=== PATIENT | female | born 1980 | race Hispanic/Latino ===

== ENCOUNTER 2024-03-10 07:42 | Day surgery (SDC) | payer BC ==
[2024-03-07 09:48] LABS: Absolute Eosinophils 0.2 K/uL (0-0.5); Absolute Lymphocytes (CBC) 2.1 K/uL (0.7-4.9); Absolute Monocytes 0.7 K/uL (0.1-1.3); Basophils % 0.3 % (0-1.3); Eosinophils % 2.6 % (0-4.4); Hematocrit 42.9 % (36.0-45.0); Hemoglobin 13.9 g/dL (12.0-15.0); Lymphocytes % 29.8 % (15.3-44.8); MCH 29.3 pg (27.0-35.0); MCHC 32.5 g/dL (32.0-36.0); MCV 90.3 fL (80-100); MPV 8.7 fL (7.6-11.3); Monocytes % 9.5 % (3.3-12.3); Neutrophils % 57.8 % (41.7-73.7); Nucleated Red Blood Cells % 0.1 % (0-0); Platelets 235 thou/uL (152-406); RBC Red Blood Cell Count 4.75 M/uL (3.86-4.86); Red Cell Distribution Width 13.9 % (12.1-15.2)
[2024-03-07 09:52] LABS: Specific Gravity 1.023 (1.005-1.030); Urine Bilirubin NEGATIVE (Negative); Urine Blood Negative (Negative); Urine Clarity Clear (Clear); Urine Color Light-Yellow (Yellow); Urine Glucose NEGATIVE (Negative); Urine Ketones NEGATIVE (Negative); Urine Microscopic Reflex YN NO UMIC; Urine Nitrite NEGATIVE (Negative); Urine Protein NEGATIVE (Negative); Urine Urobilinogen Normal (Normal)
[2024-03-10] MEDS ORDERED: Ringers Lactate 1,000 ML IV ONE (07:58)
[2024-03-10] MEDS: SCOPOLAMINE HYDROBROMIDE PATCH TD ONE (08:15)
[2024-03-10] MEDS: CEFAZOLIN SODIUM 2 GM/VIAL ONE (09:14)
[2024-03-10 10:30] LABS: Urine Specific Gravity/Preg >1.030 (1.005-1.030)
[2024-03-10] MEDS ORDERED: ONDANSETRON 4 MG/2 ML VIAL ONE (10:53)
[2024-03-10] MEDS ORDERED: LIDOCAINE 2% MPF 5 ML VIAL ONE (10:53)
[2024-03-10] MEDS ORDERED: FENTANYL CITR 100 MCG/2 ML ONE ×2 (10:53→14:55)
[2024-03-10] MEDS ORDERED: MIDAZOLAM HCL 2 MG/2 ML INJ ONE (10:53)
[2024-03-10] MEDS ORDERED: propofoL 200 MG/20 ML VIAL IV ONE (10:53)
[2024-03-10] MEDS ORDERED: ROCURONIUM 50 MG/5 ML VIAL IV ONE (10:53)
[2024-03-10] MEDS ORDERED: SUCCINYLCHOLINE 20 MG/ML (10 ML) IV ONE (10:57)
[2024-03-10] MEDS ORDERED: SUGAMMADEX SODIUM 200 MG/2 ML VIAL IV ONE (11:02)
[2024-03-10] MEDS ORDERED: HYDROMORPHONE HCL 2 MG/ML inj ONE (11:02)
[2024-03-10] MEDS ORDERED: Mastisol Adhesive Liq ONE (11:19)
[2024-03-10] MEDS ORDERED: dexAMETHasone 10 MG/ML VIAL ONE (11:50)
[2024-03-10] MEDS: BUPIVACAINE 0.25% PF 30 ML VIAL ONE (12:22)
[2024-03-10] MEDS: Ringers Lactate 1,000 ML IV ONE (13:19)
[2024-03-10] MEDS ORDERED: PROMETHAZINE INJ 25 MG/ML AMP ONE (14:56)
[2024-03-10 16:24] VITALS: BP 114/71; TEMP 97
[2024-03-10] MEDS: HYDROCODONE/APAP 5/325 MG TAB ONE (16:30)
[2024-03-10 17:15] VITALS: O2SAT 98
--- NOTE | 2024-03-14 13:24 | OP ---
Date of Procedure: 03/10/2024 Surgeon: Carlyn Cordero MD [employer]: Che Jessica Preoperative Diagnoses: Pelvic pain, history of menorrhagia, status post endometrial ablation with r ecurrent abnormal uterine bleeding (AUB-O/A). Postoperative Diagnoses: Pelvic pain, history of menorrhagia, status post endometrial ablation with recurrent abnormal uterine bleeding (AUB-O/A), bilateral hydrosalpinx and hematosalpinx, uterine prol apse and posterior enterocele, endometriosis of left mesosalpinx and possibly tubes. Procedures Performed: 1.Total laparoscopic hysterectomy, bilateral salpingectomy. Endometriosis excision from the left me sosalpinx. The specimen included along with the tube, which was attached to the uterine specimen. 2.Uterosacral ligament suspension colpopexy and cystoscopy. 3.Laparoscopic modified Reyna culdoplasty. Anesthesia: General endotracheal. Estimated Blood Loss: 50 Specimens: Bilateral tubes with left mesosalpinx, endometriosis including and uterus. Complications: No complications. Drains: No drains. Patient's Condition: Stable. Findings: POP-Q -2, -2, -3, 5.5, moderate, 8, -2, -1, and -4, uterine prolapse was significant and f ollowed by the proximal posterior wall defect, which is a posterior enterocele. She also had a large genital hiatus with a perineal body defect as well as perineal descent from the posterior enterocele defect. Cystoscopy was performed after the suspension was completed, and both ureteric orifices had strong je ts of urine from them. No evidence of any trauma to the bladder. Both tubes were significantly swollen. The left tube was swollen all the way from its proximal end a t the cornua of the uterus down to the area of tubal ligation, and there was endometriotic implant ri ght at the distal portion on the mesosalpinx; however, on the right side, most of the distal portion of the tube was distended in the proximal portion near the cornua and was completely decompressed. I t is not typical for a retrograde menstruation related hematosalpinx. This could be possibly primary endometriosis . Both ovaries were left intact with good ovarian blood supply and no other endometriotic implants found in the peritoneal cavity. Indications: The patient is a 43-year-old who had an endometrial ablation few years ago for heavy bl eeding. Her bleeding had completely stopped and she was doing well for a few years. In this year, s he started to have irregular cycles, which are not very heavy; however, episodic pain and that is sig nificant especially in the left lower quadrant. Pain is debilitating to the patient. She has been t reated with Levaquin and Flagyl for salpingitis, salpingo-oophoritis, endometritis with antibiotics a nd currently still on them. Endometrial biopsy was performed and sample did not show any atypia or malignancy. The patient was given the options of medical treatment with GnRH antagonist or Depo progesterone. e patient declined both. Hysterectomy was the option that was offered to her versus diagnostic lapar oscopy. The patient wanted to proceed with hysterectomy. She understood the risks of hysterectomy, including bleeding; infection; injury to the bowel, bladder, ureters; and fistula formation. Procedure In Detail: She was consented and taken to the OR, placed in a supine fashion on the operat ing table. 2 g of Ancef was given. SCDs were placed. Abdomen was prepped with ChloraPrep; vulva, v agina, and perineum with Betadine and draped in sterile fashion. Soares was placed to drain the bladder, and the cervix was grasped after a speculum was placed with 2 Allis clamps. The cervix was dilated to 18-Georgian and uterine manipulator was introduced and fixed i n place. The Soares was left to gravity drainage attached to a bag. This area was then draped. 1 cm infraumbilical incision was made with the scalpel after injecting the skin with 0.25% bupivacain e. Then, fascia was incised, tagged with 0 Vicryl sutures. Peritoneum entered sharply. Omar intr oduced after adequate insufflation. Site of entry was checked and was unremarkable. Upper abdominal survey was unremarkable as well. The patient was placed in Trendelenburg. A 10 suprapubic and two 5 left and right lower quadrant ports were placed under direct vision. The bowel was retracted super iorly. There was adhesion of the distal left tube to the sigmoid colon. This was taken down with e help of the LigaSure. Endometriosis excision: The endometriosis from the left mesosalpinx was noted at the distal portion of the proximal tube that was ligated. There was significant distention of the proximal tube and the endometriotic implant was on the mesosalpinx, so this was cleaned and dissected after making a perit beasley incision lateral to the implant and staying parallel to the round ligament. Anterior broad lig ament of mesosalpinx was opened up posteriorly. After visualizing that there were no other attachmen ts of the endometriotic lesions, the mesosalpinx was taken down with the help of the LigaSure all the way to the proximal portion of the tube. The distal most portion of the fimbriated end was cauteriz ed and cut. Hysterectomy: The round ligaments were isolated by opening the peritoneum on the superior and inferi or aspects of the left round ligament. Then, LigaSure was used to cauterize and cut this. Then, eran ro-ovarian ligament was taken down in the same fashion. Then, anterior broad ligament was opened up to create the bladder flap. The bladder was dissected inferiorly. Posterior peritoneum was opened u p, ureter identified and from the medial leaf of the broad ligament. Then, peritoneum was taken down to the level of the cup and posteriorly on the posterior aspect. Then, broad ligament was taken down and vessels were skeletonized once the vessels were well visualized. The uterine artery and vein were cauterized in the medial-most aspect immediately lateral to the uterus at the level of the internal os. On the opposite side, mesosalpinx was taken down with help of the LigaSure all the way to the proxima l end. Utero-ovarian ligament taken down and round ligament taken down. Anterior and posterior broa d ligaments opened up and connected to the bladder flap and posteriorly to the posterior dissection. The broad ligament was cauterized and cut, and the vessels were isolated. The ureter was identified and then medial leaf of the broad ligament dissected laterally, visualized at the level of the ureter ic tunnel. The uterosacral ligament from the ureter. This was done on both sides. The vessels were taken down with the help of bipolar cautery and then the LigaSure. Cardinal ligamen ts were taken down with the LigaSure as well with the bipolar [place] tip. Once the card inal ligaments were fully taken down on the right, and the left vessels were taken down in similar fa shion window. Then, cardinal ligaments were taken down and posteriorly, there were no curry chments to open up the peritoneum on the inferior aspect of the cuff. The anterior vaginal wall in the midline was dissected taking the bladder down inferiorly. The media l aspect of the vessels was taken down on both sides. Then circumferential colpotomy performed with a monopolar hook blade. The specimen detached and brought out through the vagina. Good hemostasis was secured using a curved tip bipolar on the right side at the base of the uterine p edicle. Once this was cauterized, there was excellent hemostasis. On evaluation of the cul-de-sac, there was a culdoplasty that was needed and so this would be performed along the uterosacral. Vaginal cuff closure was done with the help of size 0 PDS sutures x5, two angle simple sutures, and t hree [id number] in the middle with excellent apposition and good Uterosacral suspension/colpopexy: Anterior vaginal wall was dissected with the retractor pushing slava n on the lateral aspects just medial to the bladder pillars and the bladder pillars carefully taking down suspension. The [id number] sutures were placed in a careful fashion to include the fascia of the anterior an d posterior guthrie. Uterosacral ligament suspension/colpopexy: This freed up the anterior wall which was attac hed to the posterior wall using a [id number] 0 PDS sutures. Planned to reattached the vaginal w all to the distal portions of the healthier portions of uterosacral ligaments. Once these were ident ified, 0 PDS suture was passed from the left uterosacral, going lateral to medial, then posterior vag inal wall in the middle and then the right uterosacral ligament, and starting back to the left. This was superior to the first stitch and this was brought down by taking down the tension on the anterio r vaginal wall by retracting it, and the suture was tied down. Pelvic exam was performed. The vagin al length was preserved with close to 17 cm. Anterior vaginal wall prolapse. The culdoplasty was done by passing the suture through the posterior cul-de-sac and plicating along t he suture for the uterosacral suspension. Cystoscopy was performed with 30-degree lens, normal saline. After filling the bladder to 250 mL, th ere were good ureteric effluxes from both ureters. No evidence of any trauma or foreign body. The b ladder was then drained and vaginal packing was removed. Then back to the laparoscope and took the trocars out, and the gas was desufflated. All the ports we re removed under direct vision. Fascia at the umbilicus closed with tagged 0 Vicryl sutures tied to each other and simple 0 Vicryl suture closed with interrupted 4-0 Vicryl sutures. Instrum ent, needle, and sponge counts were correct at the end of the case. The patient tolerated the proced ure well. Her sister was debriefed about her condition. She will follow up in 1 week. SHEILA/YOLIS Voice ID: [id number] Report ID: [id number]
== END 2024-03-10 17:10 | disposition home or self-care (01) ==
LOC: OR 07:42
PROVIDERS: ATTEND Obstetrics & Gynecology
PROC: 0UT74ZZ Resection of Bilateral Fallopian Tubes, Percutaneous Endoscopic Approach (ICD-10-PCS; 2024-03-10)
PROC: 0USG4ZZ Reposition Vagina, Percutaneous Endoscopic Approach (ICD-10-PCS; 2024-03-10)
PROC: 0UQF4ZZ Repair Cul-de-sac, Percutaneous Endoscopic Approach (ICD-10-PCS; 2024-03-10)
PROC: 0UB44ZZ Excision of Uterine Supporting Structure, Percutaneous Endoscopic Approach (ICD-10-PCS; 2024-03-10)
PROC: 0UT94ZZ Resection of Uterus, Percutaneous Endoscopic Approach (ICD-10-PCS; principal; 2024-03-10 10:00)
DX: N80.3C2 Endometriosis of the left uterosacral ligament, unspecified depth (principal); N80.03 Adenomyosis of the uterus; N88.8 Other specified noninflammatory disorders of cervix uteri; N92.1 Excessive and frequent menstruation with irregular cycle; R10.32 Left lower quadrant pain
CPT/HCPCS: 58571; 57283; 58662; 85025; 36415; 86900; 86850; 81025; 86901; 88307; 81003; J2550; J2704; J2001; J2250; J1170; J3010 ×2; J1100; J2405; J7120 ×2; 88305